=== PATIENT | female | born 1955 | race Two or more races ===

== ENCOUNTER 2016-08-20 15:01 | Emergency (ER) | payer SELFPAY ==
[~2016-08-20] VITALS: Ht 152.4 cm; Wt 68.4 kg
[2016-08-20 15:04] VITALS: BP 168/81
== END 2016-08-20 17:02 | disposition left against medical advice (07) ==
LOC: EME 15:01
DX: S40.861A Insect bite (nonvenomous) of right upper arm, initial encounter (principal); W57.XXXA Bitten or stung by nonvenomous insect and other nonvenomous arthropods, initial encounter; Z53.21 Procedure and treatment not carried out due to patient leaving prior to being seen by health care provider

== ENCOUNTER 2017-07-23 02:04 | Emergency (ER) | payer OTHER ==
[~2017-07-23] VITALS: Ht 152.4 cm; Wt 67.5 kg
[2017-07-23 02:40] LABS: HEMATOCRIT 41.6 % (36.0-46.0); HEMOGLOBIN 14.6 G/DL (11.9-15.5); MCH 31.7 PG (29.0-34.0); MCHC 35.1 G/DL (30.0-36.0); MCV 90.2 FL (83-99); RBC DIS.WIDTH-CV 12.2 % (11.8-14.6); RBC DIS.WIDTH-SD 40.6 % (39-53); RED BLOOD COUNT 4.61 M/uL (3.80-5.20); WHITE BLOOD COUNT 8.6 K/uL (4.1-10.2)
[2017-07-23 02:56] LABS: ALBUMIN 4.5 g/dL (3.2-4.8); CHLORIDE 101 mEq/L (99-109); POTASSIUM 3.8 mEq/L (3.7-5.4); SODIUM 140 mEq/L (136-147)
[2017-07-23 02:58] LABS: GLUCOSE 111 mg/dL (70-99); TOTAL PROTEIN 7.4 g/dL (6.4-8.3)
[2017-07-23 03:00] LABS: TOTAL BILIRUBIN 0.5 mg/dL (0.0-1.0)
[2017-07-23 03:02] LABS: ALKALINE PHOSPHATASE 70 IU/L (3-129); GFR ESTIMATE (CALCULATED) > 59 mL/min/
[2017-07-23 03:03] LABS: UREA NITROGEN (BUN) 12 mg/dL (9-23)
[2017-07-23 03:04] LABS: AST (GOT) 25 IU/L (2-34)
[2017-07-23 03:05] LABS: ALT (GPT) 23 IU/L (3-49)
[2017-07-23 03:23] LABS: PLAT.SUFFICIENCY ADEQUATE; PLATELET COUNT 257 K/uL (156-360)
[2017-07-23] MEDS ORDERED: MIRALAX119 GM PO (06:21)
[2017-07-23] MEDS ORDERED: PERCOCET 5/31 TABLET PO (06:21)
[2017-07-23 06:55] LABS: APPEARANCE CLEAR ((CLEAR)); BILIRUBIN NEGATIVE; BLOOD SMALL; COLOR STRAW ((YELLOW)); GLUCOSE (STRIP) NEGATIVE; KETONES NEGATIVE; LEUKOCYTES NEGATIVE; NITRITE NEGATIVE; PROTEIN (STRIP) NEGATIVE; UROBILINOGEN 0.2 MG/DL (0.2-1.0)
[2017-07-23 06:56] LABS: SPECIFIC GRAVITY > 1.060 (1.000-1.030)
[2017-07-23 06:59] LABS: BACTERIA RARE /HPF; EPITHELIAL CELLS 1+ /HPF; MUCUS NONE SEEN /LPF; UCUL ADDED? NO; WHITE BLOOD CELLS 0-5 /HPF (0-5)
[2017-07-23 07:38] VITALS: BP 162/82
== END 2017-07-23 07:50 | disposition home or self-care (01) ==
LOC: EME 02:04
DX: R19.00 Intra-abdominal and pelvic swelling, mass and lump, unspecified site (principal); R18.8 Other ascites; I10 Essential (primary) hypertension
CPT/HCPCS: 74177; 80053; 81003; 85027; 99281; 99284; J2405; J3010; J7030